=== PATIENT | female | born 1980 | race Native Hawaiian/Other Pacific Islander ===

== ENCOUNTER 2022-03-15 19:00 | Emergency (ER) | payer OTHER ==
[~2022-03-15] VITALS: Ht 157.5 cm; Wt 99.8 kg
[2022-03-15 20:10] VITALS: BP 125/71; TEMP 98.1
== END 2022-03-15 20:15 | disposition home or self-care (01) ==
LOC: ED 19:00
DX: F41.8 Other specified anxiety disorders (principal); U07.1 COVID-19
CPT/HCPCS: 99282

== ENCOUNTER 2022-10-22 13:27 | Emergency (ER) | payer OTHER ==
[~2022-10-22] VITALS: Ht 157.5 cm; Wt 98.4 kg
[2022-10-22 13:42] VITALS: BP 126/59; TEMP 98.2
[2022-10-22 14:04] LABS: PLATELET COUNT 212 K/uL (152-353)
[2022-10-22 14:15] LABS: POTASSIUM 4.1 mmol/L (3.6-5.2)
== END 2022-10-22 16:02 | disposition home or self-care (01) ==
LOC: ED 13:27
PROVIDERS: Family Medicine
DX: K29.70 Gastritis, unspecified, without bleeding (principal); R00.1 Bradycardia, unspecified; R16.0 Hepatomegaly, not elsewhere classified
CPT/HCPCS: 36415; 80053; 81002; 83690; 84484; 85027; 93005; 96361; 96374; 99284; J2405; Q9963